=== PATIENT | female | born 1935 | race African-American/Black ===

== ENCOUNTER → 2016-05-16 | Outpatient (CLI) | payer MEDICARE ==
[~2016-05-16] MED LIST: ACTOS PO; ASPIRIN EC81 M1 PO; ASPIRIN PO; ATENOLOL PO; COUMADIN; DARVOCET-N 1001 TAB PO; GLUCOTROL PO; HYDRALAZINE HCL50 MG PO; HYDROCHLOROTHIA25 MG PO; HYDROCORDONE PO; JANUVIA PO; LIPITOR PO; LISINOPRIL PO; LOSARTAN POTASS50 MG PO; LOVENOX SUBQ; LOVENOX40 MG/0.4 INJ; METFORMIN PO; METOPROLOL PO; NAPROXEN PO; NEPHROCAPS CAPSU1 MG PO; NORVASC PO; PROCRIT SUBQ; SENNA-S TABLET1 EACH PO; SODIUM BICARBO650 MG PO; TRAMADOL HCL50 M2 PO; VITAMIN B COMPLEX PO; VITAMIN D2000 UNIT PO; WARFARIN SODIUM10 M1 PO; ZETIA PO
[2016-05-19 05:38] LABS: HEP B SURFACE AG Nonreactive (Nonreactive)
== END | disposition home or self-care (01) ==
LOC: CLAB 13:18
PROVIDERS: Internal Medicine Nephrology
DX: N18.5 Chronic kidney disease, stage 5 (principal)
CPT/HCPCS: 36415; 87340